=== PATIENT | male | born 1955 | race Two or more races ===

== ENCOUNTER 2018-03-08 01:39 | Emergency (ER) | payer MEDICAID, MEDICARE ==
[~2018-03-08] VITALS: Ht 180.3 cm; Wt 158.8 kg
[~2018-03-08 01:39] MED LIST: CIPRO500 MG PO; FLAGYL500 MG ORAL; NORCO 5-325 TA1 EAC1 ORAL; UNOBMED
[2018-03-08] MEDS ORDERED: METFORMIN HYD1000 GM MC (02:00)
[2018-03-08] MEDS ORDERED: BENICAR HCT 401 EAC1 ORAL (02:01)
[2018-03-08] MEDS ORDERED: HYDRALAZINE HCL25 M1 ORAL (02:02)
[2018-03-08] MEDS ORDERED: METOPROLOL TART50 MG ORAL (02:04)
[2018-03-08] MEDS ORDERED: HYDRALAZINE HCL50 MG ORAL (02:40)
[2018-03-08 02:41] VITALS: BP 173/93
--- NOTE | 2018-03-08 02:41 | Emergency Room Report ---
History of Present Illness General Chief Complaint: Hypertension Source: Patient Present Illness HPI Is a 63-year-old male with a history hypertension. He presents with chief complaint of headache and hypertension. Onset today. He just was recently switched out from metoprolol and Bystolic to benazepril/hydrochlorothiazide and hydralazine. He said his blood pressure is 180/120 this morning. He took his blood pressure medication is not helping. He added his oral medication. He also complaining of a headache to the back of his head is been ongoing for a few weeks. Never had any studies done. No nausea no vomiting. No fever chills but no chest pain. Denies any other complaint. Allergies: Coded Allergies: No Known Allergies (Unverified , 03/06/14) Patient History Past Medical History: see triage record, old chart reviewed, DM, HTN Past Surgical History: other Pertinent Family History: none Social History: Denies: smoking Immunizations: other Reviewed Nursing Documentation: PMH: Agreed; PSxH: Agreed Nursing Documentation-PMH Hx Hypertension: Yes Hx Diabetes: Yes Review of Systems Eye: Denies: eye pain, blurred vision ENT: Denies: ear pain, nose congestion, throat swelling Respiratory: Denies: cough, shortness of breath Cardiovascular: Denies: chest pain, palpitations Gastrointestinal: Denies: abdominal pain, diarrhea, nausea, vomiting Musculoskeletal: Denies: back pain, joint pain Skin: Denies: rash Neurological: Reports: headache; Denies: numbness Endocrine: Denies: increased thirst, increased urine Hematologic/Lymphatic: Denies: easy bruising All Other Systems: negative except mentioned in HPI Physical Exam Vital Signs Date Time Temp Pulse Resp B/P (MAP) Pulse Ox O2 Delivery O2 Flow Rate FiO2 03/08/18 01:50 98.4 73 18 153/96 95 Room Air 98.4 vitals with high blood pressure Sp02 EP Interpretation: reviewed, normal General Appearance: well appearing, no apparent distress, alert, obese Head: normocephalic, atraumatic Eyes: bilateral eye PERRL, bilateral eye EOMI ENT: hearing grossly normal, normal pharynx Neck: full range of motion, supple, no meningismus Respiratory: chest non-tender, lungs clear, normal breath sounds Cardiovascular #1: regular rate, rhythm, no murmur Gastrointestinal: normal bowel sounds, non tender, no mass, no organomegaly, no bruit, non-distended Musculoskeletal: back normal, gait/station normal, normal range of motion Psychiatric: mood/affect normal Skin: warm/dry Medical Decision Making Diagnostic Impression: Primary Impression: Hypertension Qualified Codes: I10 - Essential (primary) hypertension ER Course This patient presents with high blood pressure and headache. No evidence of endorgan damage. No evidence of any mass or neoplastic process. Blood pressure better now. He had recent blood work done a couple weeks ago. He brought it with him. His cholesterol level was actually very good. His triglycerides little high. Rest of the labs unremarkable. I see no need to repeat labs. CT scan head is negative. We'll discharge home with increase in his hydralazine. CT/MRI/US Diagnostic Results CT/MRI/US Diagnostic Results : Imaging Test Ordered: CT head Impression negative per radiologist Last Vital Signs Date Time Temp Pulse Resp B/P (MAP) Pulse Ox O2 Delivery O2 Flow Rate FiO2 03/08/18 02:16 73 18 Room Air 03/08/18 01:50 98.4 153/96 95 98.4 Status: improved Disposition: HOME, SELF-CARE Condition: Stable Scripts Hydralazine Hcl* (HYDRALAZINE HCL*) 50 Mg Tablet 50 MG ORAL EVERY 8 HOURS, #90 TAB Prov: CASANDRA PHILLIP M.D. 03/08/18 Referrals: NON PHYSICIAN (PCP) Additional Instructions: Increase your hydralazine to 50 mg 3 times a day. Follow-up with your doctor in a week for recheck. Return if symptom worsen. CASANDRA PHILLIP M.D. Mar 08, 2018 02:41
[2018-03-08] MEDS ORDERED: HydrALAZINE 50mg tab ORAL ONE (02:45)
[2018-03-08 02:50] VITALS: BP 173/93
--- NOTE | 2018-03-08 09:46 | Diagnostic Imaging Report ---
Indication: Headache Technique: Contiguous 5 mm thick transaxial imaging of the head obtained in a Siem[employer] Sensation [address] scanner. Soft tissue and bone windows generated. Automatic Exposure Control was utilized. Total Dose length Product (DLP): 1326.[address] Dose Index Volume (CTDIvol): 70.38 mGy Comparison: none Findings: The size and configuration of the cortical sulci, basal cisterns, and ventricles are within normal limits for age. There is no mass effect, midline shift, or edema identified. There is no evidence of acute hemorrhage or abnormal intra-axial or extra-axial fluid collections. The bones and soft tissues are unremarkable. Impression: No mass effect, edema or acute bleed. [facility] has communicated the preliminary results to the Emergency Department. Their findings are largely concordant with this report. The CT scanner at [facility] is accredited by the [employer] and the scans are performed using dose optimization techniques as appropriate to a performed exam including Automatic Exposure control.
== END 2018-03-08 02:50 | disposition home or self-care (01) ==
LOC: EMR 02:21
DX: I10 Essential (primary) hypertension (principal); E11.9 Type 2 diabetes mellitus without complications; R51 Headache
CPT/HCPCS: 70450; 99284